=== PATIENT | female | born 2000 | race Caucasian/White ===

== ENCOUNTER 2024-04-05 08:27 | Outpatient (CLI) | payer BC ==
[2024-04-05] MEDS ORDERED: Magnevist 469MG/ML 20 ML VIAL ONE (13:37)
== END 2024-04-05 08:28 | disposition home or self-care (01) ==
LOC: CSHMRI 08:27
PROVIDERS: ATTEND Otolaryngology Plastic Surgery within the Head & Neck
DX: G51.9 Disorder of facial nerve, unspecified (principal); R90.82 White matter disease, unspecified; H61.93 Disorder of external ear, unspecified, bilateral
CPT/HCPCS: 70553

== ENCOUNTER 2024-11-04 09:17 | Outpatient (CLI) | payer BC | END 2024-11-04 09:18 | disposition home or self-care (01) | LOC: CSHMRI 09:17 | PROVIDERS: ATTEND Psychiatry & Neurology Neurology | DX: R90.82 White matter disease, unspecified (principal) | CPT/HCPCS: 70553; 76376 ==